=== PATIENT | male | born 1950 | race Hispanic/Latino ===

== ENCOUNTER → 2019-12-25 | Outpatient (CLI) | payer MEDICARE | END | disposition home or self-care (01) | LOC: RAH 10:29 | PROVIDERS: ATTEND Family Medicine | DX: E04.9 Nontoxic goiter, unspecified (principal) | CPT/HCPCS: 76536 ==

== ENCOUNTER → 2020-01-07 | Outpatient (CLI) | payer MEDICARE | END | disposition home or self-care (01) | LOC: RAH 10:25 | PROVIDERS: ATTEND Family Medicine | DX: I70.201 Unspecified atherosclerosis of native arteries of extremities, right leg (principal) | CPT/HCPCS: 93925 ==

== ENCOUNTER 2021-08-31 09:38 | Emergency (ER) | payer MEDICARE ==
[~2021-08-31] VITALS: Ht 165.1 cm; Wt 95.3 kg
[2021-08-31 10:16] LABS: BASOPHILS % (AUTO) 0.7 % (0.0-5.0); EOSINOPHILS % (AUTO) 0.8 % (0.0-8.0); HEMATOCRIT 42.3 % (42-54); MEAN CORPUSCULAR HEMOGLOBIN 29.5 pg (27.0-33.0); MEAN CORPUSCULAR HGB CONC 32.4 g/dL (32.0-36.0); MEAN CORPUSCULAR VOLUME 91.2 fL (79-99); MONOCYTES % (AUTO) 9.9 % (3.0-13.0); NEUTROPHILS % (AUTO) 68.2 % (40.0-77.0); PLATELET COUNT (AUTO) 240 K/uL (130-400); RED BLOOD CELL COUNT(AUTO) 4.64 MIL/uL (4.50-6.20); RED CELL DISTRIBUTION WIDTH 14.7 % (11.0-15.5); WHITE BLOOD COUNT (AUTO) 8.8 K/uL (4.8-10.8)
[2021-08-31] MEDS: SOLU-MEDROL 125MG VIAL IVP ONE (10:21)
[2021-08-31] MEDS: ORPHENADRINE CITRATE 30 MG/ML ML IVP ONE (10:21)
[2021-08-31] MEDS: KETOROLAC 15MG/ML VIAL (15MG/ML) IV ONE (10:22)
[2021-08-31 10:25] LABS: CREATININE 0.9 mg/dL (0.5-1.5); POTASSIUM 4.5 mmol/L (3.5-5.1)
[2021-08-31 10:29] LABS: ALBUMIN 3.4 g/dL (3.5-5.0); BILIRUBIN,TOTAL 0.7 mg/dL (0.2-1.0); TOTAL PROTEIN, SERUM 7.3 g/dL (6.0-8.3)
[2021-08-31] MEDS ORDERED: CELE200 PO (11:58)
[2021-08-31] MEDS ORDERED: PRED10TA23 PO (11:58)
[2021-08-31 12:29] VITALS: BP 134/62
== END 2021-08-31 12:30 | disposition home or self-care (01) ==
LOC: EDH 09:38
DX: M54.16 Radiculopathy, lumbar region (principal); M76.31 Iliotibial band syndrome, right leg; E11.9 Type 2 diabetes mellitus without complications; E78.00 Pure hypercholesterolemia, unspecified; I10 Essential (primary) hypertension; Z79.1 Long term (current) use of non-steroidal anti-inflammatories (NSAID); Z79.52 Long term (current) use of systemic steroids
CPT/HCPCS: 36415; 72131; 73502; 80053; 85025; 96374; 96375; 99285; J1885; J2360; J2930

== ENCOUNTER → 2023-12-28 | Outpatient (CLI) | payer OTHER, MEDICARE ==
[~2023-12-28] MED LIST: BACL10TA PO; CELE200 PO; CHOL200012 PO; FINA5TAB41 PO; FLUC200T12 PO; FURO80TA3 PO; GLIP10TA9 PO; ICOS0.5C PO; LEVO175C2 PO; METO2.5T2 PO; OMEP40CA21 PO; PRED10TA23 PO; ROSU40TA88 PO; TAMS-1 PO; VALS1TAB76 PO
== END | disposition home or self-care (01) ==
LOC: RAH 12:58
PROVIDERS: ATTEND Internal Medicine
DX: I08.0 Rheumatic disorders of both mitral and aortic valves (principal); R60.9 Edema, unspecified
CPT/HCPCS: 93306

== ENCOUNTER → 2024-10-04 | Outpatient (CLI) | payer OTHER, MEDICAID ==
[~2024-10-04] MED LIST changes: -FLUC200T12 PO; +FLUC200T96 PO; +GLIP10TA16 PO; -GLIP10TA9 PO; -LEVO175C2 PO; +LEVO175C3 PO; -TAMS-1 PO; +TAMS-55 PO
--- NOTE | 2024-10-04 17:13 | HMCIMG ---
US ARTERIAL BILAT LOW EXT DUPL HISTORY: Edema COMPARISON: 01/06/2014 TECHNIQUE: Bilateral lower extremity arterial Doppler ultrasound study was performed. FINDINGS: Normal triphasic arterial waveforms are noted in the common femoral, deep femoral, superficial femoral arteries bilaterally. Abnormal monophasic arterial waveforms are seen in the left distal superficial femoral artery, bilateral popliteal, anterior tibial, posterior tibial and dorsalis pedal arteries. On the right, the peak systolic velocity of the common femoral artery is 198 cm/s, the proximal femoral artery is 152 cm/s, the mid femoral artery is 227 cm/s, the distal femoral artery is 232 cm/s, the proximal popliteal artery is 246 cm/s, the distal popliteal artery is 654 cm/s, the anterior tibial artery is 67 cm/s, the posterior tibial artery artery is 72 cm/s,and the dorsalis pedal artery is 75 cm/s. On the left, the peak systolic velocity of the common femoral artery is 253 cm/s, the proximal femoral artery is 142 cm/s, the mid femoral artery is 133 cm/s, the distal femoral artery is 160 cm/s, the proximal popliteal artery is 184 cm/s, the distal popliteal artery is 104 cm/s, the anterior tibial artery is 46 cm/s, the posterior tibial artery artery is 95 cm/s,and the dorsalis pedal artery is 42 cm/s. IMPRESSION: 1. Atherosclerotic disease. 2. Abnormal monophasic arterial waveforms are seen in the left distal superficial femoral artery, bilateral popliteal, anterior tibial, posterior tibial and dorsalis pedal arteries. Elevated velocity is seen in the right distal popliteal artery consistent with stenosis.
== END | disposition home or self-care (01) ==
LOC: RAH 14:12
PROVIDERS: ATTEND Internal Medicine
DX: R60.1 Generalized edema (principal); I70.8 Atherosclerosis of other arteries
CPT/HCPCS: 93925